=== PATIENT | female | born 2000 | race Caucasian/White ===

== ENCOUNTER 2021-08-30 23:13 | Emergency (ER) | payer OTHER ==
[~2021-08-30] VITALS: Ht 160 cm; Wt 125.6 kg
[2021-08-30] MEDS ORDERED: PREDNISONE 20MG TABLET PO ONE (23:45)
[2021-08-30] MEDS ORDERED: FAMOTIDINE 20MG TABLET PO ONE (23:45)
[2021-08-30] MEDS ORDERED: DIPHENHYDRAMINE 50MG CAPSULE PO ONE (23:45)
[2021-08-31] MEDS ORDERED: DIPH25CA83 MT (01:33)
[2021-08-31] MEDS ORDERED: P20 MT (01:33)
[2021-08-31] MEDS ORDERED: FAMO-135 MT (01:33)
[2021-08-31 02:24] VITALS: BP 136/85
[2021-08-31] MEDS ORDERED: EPIN0.3P3 IM (02:48)
== END 2021-08-31 02:30 | disposition home or self-care (01) ==
LOC: ER 23:13
DX: L50.9 Urticaria, unspecified (principal); Z98.890 Other specified postprocedural states
CPT/HCPCS: 81025; 99284; J7512; Q0163

== ENCOUNTER 2022-04-28 02:39 | Emergency (ER) | payer OTHER ==
[~2022-04-28] VITALS: Ht 162.6 cm; Wt 120.1 kg
[~2022-04-28 02:39] MED LIST: DIPH25CA83 MT; EPIN0.3P3 IM; FAMO-135 MT; P20 MT
[2022-04-28] MEDS ORDERED: KETOROLAC 60MG/2ML VIAL IM STA (02:57)
[2022-04-28 03:14] LABS: BASOPHILS % 0.7 % (0.0-2.0); EOSINOPHILS % 2.4 % (0.0-5.0); HEMATOCRIT. 43.5 % (36.0-48.0); HEMOGLOBIN. 14.5 g/dL (12.0-16.0); LYMPHOCYTES % 38.1 % (20.0-50.0); MEAN CORPUSCULAR HEMOGLOBIN 27.3 pg (28.0-32.0); MEAN CORPUSCULAR VOLUME 81.8 fL (81.0-99.0); MEAN PLATELET VOLUME 8.8 fl (7.4-10.4); MONOCYTES % 5.6 % (2.0-8.0); NEUTROPHILS % 53.2 % (40.0-76.0); PLATELET 285 x1000/uL (130-400); RED BLOOD CELL COUNT 5.32 mill/uL (4.2-5.4); RED CELL DISTRIBUTION WIDTH 13.8 % (11.6-14.6)
[2022-04-28 03:20] LABS: CHLORIDE 109 mEq/L (98-107)
[2022-04-28 04:16] LABS: CLARITY URINE CLEAR (CLEAR); COLOR URINE YELLOW (YELLOW); KETONES URINE NEGATIVE (NEGATIVE); LEUKOCYTE ESTERASE URINE TRACE (NEGATIVE); NITRITE URINE NEGATIVE (NEGATIVE); OCCULT BLOOD URINE NEGATIVE (NEGATIVE); PROTEIN URINE NEGATIVE (NEGATIVE); SPECIFIC GRAVITY URINE 1.015 (1.005-1.030); UROBILINOGEN URINE 0.2 E.U./dL (0.2-1.0)
[2022-04-28] MEDS: KETOROLAC 60MG/2ML VIAL IM NR ×2 (04:45→04:52)
[2022-04-28 04:52] VITALS: BP 137/80
[2022-04-28] MEDS ORDERED: OMEP20CA14 MT (06:54)
[2022-04-28] MEDS ORDERED: NITR-87 MT (06:54)
== END 2022-04-28 07:10 | disposition home or self-care (01) ==
LOC: ER 02:52
DX: R10.11 Right upper quadrant pain (principal); Z79.899 Other long term (current) drug therapy
CPT/HCPCS: 36415; 74176; 80053; 81003; 81025; 83690; 85025; 99284; J1885